=== PATIENT | male | born 1985 ===

== ENCOUNTER 2017-10-03 12:21 | Emergency (ER) | payer OTHER ==
[2017-10-03 12:49] VITALS: BP 120/80; PULSE 100; RESP 20; TEMP 99.1; O2SAT 99
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
--- NOTE | 2017-10-03 14:03 | RAD ---
PROCEDURE: Right Knee Radiographs. HISTORY: COMPARISON: None available. FINDINGS: BONES: No acute displaced fracture. JOINTS: No dislocation. JOINT EFFUSION: Probable small suprapatellar joint effusion. OTHER FINDINGS: None. IMPRESSION: Probable small suprapatellar joint effusion. No acute displaced fracture or dislocation identified. If symptoms persist, or if there is continued clinical concern, x-ray follow-up in 7-10 days should be considered.
== END 2017-10-03 13:51 | disposition home or self-care (01) ==
LOC: C.ER 12:21
DX: S80.01XA Contusion of right knee, initial encounter (principal); S80.211A Abrasion, right knee, initial encounter; V09.3XXA Pedestrian injured in unspecified traffic accident, initial encounter; Y92.410 Unspecified street and highway as the place of occurrence of the external cause